=== PATIENT | male | born 1980 | race Two or more races ===

== ENCOUNTER 2023-07-12 15:16 | Inpatient (IN) | payer MEDICAID, OTHER ==
[~2023-07-12] VITALS: Ht 165.1 cm; Wt 92.7 kg
[2023-07-12 15:52] LABS: Basophils # (auto) 0.1 10 ^3/uL (0-0.2); Eosinophils # (auto) 0 10 ^3/uL (0-0.8); Hemoglobin 9.4 g/dL (13.5-17.5); Lymphocytes # (auto) 1.4 10 ^3/uL (0.4-5.4); Monocytes # (auto) 0.3 10 ^3/uL (0-1.3)
[2023-07-12 15:54] LABS: Basophils % (auto) 0.8 % (0.0-2.0); Eosinophils % (auto) 0.4 % (0.0-7.0); Hematocrit 31.6 % (41.0-53.0); Lymphocytes % (auto) 14.3 % (10.0-50.0); Mean Corpuscular Hemoglobin 18.5 pg (28.0-32.0); Mean Corpuscular Hgb Conc. 29.8 g/dL (32.0-36.0); Mean Corpuscular Volume 62.1 fL (80.0-100.0); Monocytes % (auto) 3.5 % (0.0-12.0); Neutrophils # (auto) 7.7 10 ^3/uL (1.6-8.6); Red Blood Cells 5.09 10^6/uL (4.5-5.90); White Blood Cell 9.5 10^3/uL (4.4-10.8)
[2023-07-12 15:59] LABS: Red Cell Distribution Width 20.1 % (11.8-14.3)
[2023-07-12 16:14] LABS: Alanine Aminotransferase 54 U/L (7-40); Alkaline Phosphatase 95 U/L (46-116); Anion Gap 11 (5-15); Aspartate Aminotransferase 36 U/L (13-40); BUN/Creatinine Ratio 9.8 (10.0-20.0); Blood Urea Nitrogen 8 mg/dL (9-23); Calcium 8.7 mg/dL (8.5-10.1); Carbon Dioxide 23 mmol/L (20-30); Chloride 108 mmol/L (98-107); Glucose 93 mg/dL (74-106); Potassium 3.6 mmol/L (3.5-5.1); Sodium 142 mmol/L (136-145)
[2023-07-12 16:15] LABS: Albumin 4.7 g/dL (3.2-4.8); Bilirubin, Total 0.3 mg/dL (0.2-1.0); Total Protein 7.4 g/dL (5.7-8.2)
[2023-07-12 16:22] LABS: Blood Alcohol 390.2 mg/dL (<10)
[2023-07-12 16:32] LABS: Platelet Estimate Adequate
[2023-07-12 16:33] LABS: Anisocytosis Slight
[2023-07-12 16:34] LABS: Hypochromia Marked
[2023-07-12] MEDS ORDERED: FER325T PO (18:08)
[2023-07-12] MEDS ORDERED: PANTOPRAZOLE 40mg/50ML NS AE 50 ML IV ONE (18:15)
[2023-07-12] MEDS ORDERED: PANTOPRAZOLE 80 MG in SODIUM CHL 0.9% 100 ML IV ONE (18:15)
[2023-07-12 18:19] LABS: Acetaminophen < 2.0 UG/ML (10.0-20.0)
[2023-07-12 18:33] LABS: Salicylate < 3.0 mg/dL (2.8-20.0)
[2023-07-12 19:03] LABS: Magnesium 2.2 mg/dL (1.6-2.6)
[2023-07-12] MEDS ORDERED: NITROGLYCERIN 0.4 MG SL TAB SL PRN (19:30)
[2023-07-12] MEDS ORDERED: MORPHINE SULFATE INJ 2 MG/ml SYRG IV PRN (19:30)
[2023-07-12] MEDS ORDERED: LORazepam 2MG/ML-1ML VIAL IV PRN (19:30)
[2023-07-12] MEDS ORDERED: SODIUM CHLORIDE 0.9% 1,000 ML IV SCH (19:30)
[2023-07-12] MEDS ORDERED: ONDANSETRON HCL 4 MG/2 ML VIAL IV PRN (19:30)
[2023-07-12] MEDS ORDERED: FOLIC ACID 1 MG, MAGNESIUM SULF SDV 50% 8 MEQ, MULTIPLE VITAMIN 10 ML, THIAMINE INJ 100... INJ SCH ×10 (20:00)
[2023-07-12] MEDS ORDERED: DEXTROSE (50%) 50ML SYRG IV PRN (20:45)
[2023-07-12] MEDS ORDERED: ACCU-CHEK COMFORT CURVE STRIP VI SCH (22:00)
[2023-07-12] MEDS ORDERED: PANTOPRAZOLE 40 MG/10 ML VIAL INJ IV SCH (22:00)
[2023-07-12 22:19] VITALS: BP 103/62; PULSE 91; RESP 18; O2SAT 91
== END 2023-07-12 22:55 | disposition left against medical advice (07) | DRG 92 ==
LOC: EDBD 15:16 → ER 15:16 → TELE 19:27
PROVIDERS: ADMIT Nurse Practitioner Family; ATTEND Nurse Practitioner Family
DX: G92.8 Other toxic encephalopathy (principal); K92.2 Gastrointestinal hemorrhage, unspecified; D50.9 Iron deficiency anemia, unspecified; Z53.29 Procedure and treatment not carried out because of patient's decision for other reasons; F10.129 Alcohol abuse with intoxication, unspecified; Y90.8 Blood alcohol level of 240 mg/100 ml or more; R19.7 Diarrhea, unspecified; F17.210 Nicotine dependence, cigarettes, uncomplicated
CPT/HCPCS: 36415; 70450; 71045; 80053; 80320; 80329; 82140; 82962; 83690; 83735; 85025; 86850; 86900; 86901; C9113; G0378